=== PATIENT | female | born 1990 | race Caucasian/White ===

== ENCOUNTER 2021-10-12 00:40 | Emergency (ER) | payer OTHER ==
[~2021-10-12] VITALS: Ht 157.5 cm; Wt 113.4 kg
[2021-10-12 02:26] VITALS: BP 124/73
== END 2021-10-12 02:28 | disposition short-term general hospital (02) ==
LOC: ER 00:40
DX: H57.11 Ocular pain, right eye (principal); Z90.49 Acquired absence of other specified parts of digestive tract